=== PATIENT | male | born 1970 | race African-American/Black ===

== ENCOUNTER 2017-02-11 08:13 | Emergency (ER) | payer OTHER ==
[2017-02-11 08:16] VITALS: TEMP 98.4; BMI 34.0
[2017-02-11] MEDS ORDERED: ACETAMINOPHEN 500 MG TABLET (FP) PO ONE (08:59)
[2017-02-11] MEDS ORDERED: ACETAMINOPHEN 325 MG TABLET (FP) ONE (09:05)
--- NOTE | 2017-02-11 09:39 | PDOC ---
History of Present Illness <Mei Robles - Last Filed: 02/11/17 10:09> - General History Source: Patient Exam Limitations: No Limitations - History of Present Illness Initial Comments: 02/11/17 10:24 The patient is a 47 year old male, with a significant past medical history of hypertension, hyperlipidemia, and GERD, who presents to the emergency department complaining of a headache since approximately 07:00 today. Patient reports taking his blood pressure this morning when he woke up, which was 160/ 110 also at 7am. Shortly after, patient reports he developed a gradual onset left-sided headache localized in the left evangelical. Patient reports headache radiates from the left frontal to the left occipital lobe. He denies any associated dizziness, stiff neck, changes in vision, or ear pain. He denies any head trauma or LOC. He has had similar headaches in the past when his BP is high. Patient reports taking his Losartan and Amlodipine for his HTN this morning, which lowered his bp and improved his headache, but his headache did not resolve. Patient reports he was recently prescribed a new medication for his HLD by Dr. Patten, but he admits he has not been taking it daily, because he believes they will interact with his HTN meds. He denies any abdominal pain, nausea, vomiting, diarrhea, or constipation. He denies any chest pain, shortness of breath, diaphoresis, or palpitations. He denies any recent travel or sick contacts. Allergies: NKDA Past Surgical History: None reported Social History: Former smoker. Social ETOH use. No drug use. PCP: Dr. Patten <Elva Medina - Last Filed: 02/11/17 10:27> - General Chief Complaint: Blood Pressure Problem Stated Complaint: HEADACHE, HIGH BP Time Seen by Provider: 02/11/17 08:40 Past History - Past Medical History GI Disorders: Yes (ACID REFLUX) HTN: Yes - Psycho/Social/Smoking Cessation Hx Anxiety: No Suicidal Ideation: No Smoking History: Former smoker Have you smoked in the past 12 months: No If you are a former smoker, when did you quit?: 20 YRS Information on smoking cessation initiated: No Hx Alcohol Use: Yes (SOCIAL) Drug/Substance Use Hx: No Substance Use Type: None <Mei Robles - Last Filed: 02/11/17 10:09> <Elva Medina - Last Filed: 02/11/17 10:27> - Past Medical History Allergies/Adverse Reactions: Allergies Allergy/AdvReac Type Severity Reaction Status Date / Time No Known Allergies Allergy Verified 02/11/17 08:16 Home Medications: Ambulatory Orders Amlodipine Besylate 5 mg PO DAILY 02/11/17 Losartan Potassium [Cozaar] 100 mg PO DAILY 02/11/17 Review of Systems - Review of Systems Able to Perform ROS?: Yes Comments:: 02/11/17 10:24 GENERAL/CONSTITUTIONAL: Yes: +high blood pressure. No fever or chills. No weakness. HEAD, EYES, EARS, NOSE AND THROAT: No change in vision. No ear pain or discharge. No sore throat. CARDIOVASCULAR: No chest pain or shortness of breath. RESPIRATORY: No cough, wheezing, or hemoptysis. GASTROINTESTINAL: No nausea, vomiting, diarrhea or constipation. GENITOURINARY: No dysuria, frequency, or change in urination. MUSCULOSKELETAL: No joint or muscle swelling or pain. No neck or back pain. SKIN: No rash NEUROLOGIC: Yes: +headache. No vertigo, loss of consciousness, or change in strength/sensation. ENDOCRINE: No increased thirst. No abnormal weight change. HEMATOLOGIC/LYMPHATIC: No anemia, easy bleeding, or history of blood clots. ALLERGIC/IMMUNOLOGIC: No hives or skin allergy. <AdamDayananancy - Last Filed: 02/11/17 10:27> *Physical Exam - Vital Signs Last Vital Signs Temp Pulse Resp BP Pulse Ox 98.4 F 72 18 137/90 100 02/11/17 08:49 02/11/17 08:49 02/11/17 08:49 02/11/17 08:49 02/11/17 08:49 <Nassef,Yomna - Last Filed: 02/11/17 10:09> - Vital Signs Last Vital Signs Temp Pulse Resp BP Pulse Ox 98.4 F 86 18 132/95 100 02/11/17 08:49 02/11/17 09:48 02/11/17 09:48 02/11/17 09:48 02/11/17 09:48 - Physical Exam Comments: 02/11/17 10:25 GENERAL: Awake, alert, and fully oriented, in no acute distress. BP on my exam 130/90 HEAD: No signs of trauma EYES: PERRLA, EOMI, sclera anicteric, conjunctiva clear ENT: Auricles normal inspection, hearing grossly normal, nares patent, oropharynx clear without exudates. Moist mucosa NECK: Normal ROM, supple, no lymphadenopathy, JVD, or masses LUNGS: Breath sounds equal, clear to auscultation bilaterally. No wheezes, and no crackles HEART: Regular rate and rhythm, normal S1 and S2, no murmurs, rubs or gallops ABDOMEN: Soft, nontender, normoactive bowel sounds. No guarding, no rebound. No masses EXTREMITIES: Normal range of motion, no edema. No clubbing or cyanosis. No cords, erythema, or tenderness NEUROLOGICAL: Normal speech, cranial nerves intact, negative pronator drift, 5/ 5 strength in all 4 extremities, normal sensation to light touch in all 4 extremities, normal cerebellar exam, normal gait, normal reflexes and tone SKIN: Warm, Dry, normal turgor, no rashes or lesions noted. <Elva Medina - Last Filed: 02/11/17 10:27> ED Treatment Course - Medications Given in the ED: ED Medications Discontinued Medications Generic Name Dose Route Start Last Admin Trade Name Freq PRN Reason Stop Dose Admin Acetaminophen 1,000 mg 02/11/17 08:59 02/11/17 09:04 Tylenol - PO 02/11/17 09:00 1,000 mg ONCE ONE Administration <Mei Robles - Last Filed: 02/11/17 10:09> - Medications Given in the ED: ED Medications Discontinued Medications Generic Name Dose Route Start Last Admin Trade Name Freq PRN Reason Stop Dose Admin Acetaminophen 1,000 mg 02/11/17 08:59 02/11/17 09:04 Tylenol - PO 02/11/17 09:00 1,000 mg ONCE ONE Administration <Elva Medina - Last Filed: 02/11/17 10:27> Medical Decision Making - Medical Decision Making 02/11/17 09:04 47-year-old male with a history of hypertension and hyperlipidemia presents with a left-sided headache and elevated blood pressure. Repeat blood pressure here is down to 130/90 likely because patient took his amlodipine and losartan at home. Headache is improved however still present. On exam patient is completely neurologically intact and otherwise exam is normal. Given history of similar headaches, gradual onset and improvement of headache with reduction in blood pressure likely benign headache in association with hypertensive urgency. -tylenol -reassess 02/11/17 10:07 Headache improved. Repeat neurologic exam wnl and non focal. Pt has follow up with Dr. Queen this week. I discussed the physical exam findings, ancillary test results and final diagnoses with the patient. I answered all of the patient's questions. The patient was satisfied with the care received and felt comfortable with the discharge plan and treatment plan. The patient will call their primary care physician within 24 hours to arrange follow-up and will return to the Emergency Department with any new, persistent or worsening symptoms. <Mei Robles - Last Filed: 02/11/17 10:09> *DC/Admit/Observation/Transfer - Discharge Dispostion Admit: No - Attestations Physician Attestion: 02/11/17 10:10 I, Dr. Mei Robles MD, attest that this document has been prepared under my direction and personally reviewed by me in its entirety. I further attest, that it accurately reflects all work, treatment, procedures and medical decision -making performed by me. <Mei Robles - Last Filed: 02/11/17 10:09> - Attestations Scribe Attestion: 02/11/17 10:25 Documentation prepared by Elva Medina, acting as medical director of hospice for Mei Robles MD. <Elva Medina - Last Filed: 02/11/17 10:27> Diagnosis at time of Disposition: Headache Qualifiers: Headache type: unspecified Headache chronicity pattern: unspecified pattern Intractability: not intractable Qualified Code(s): R51 - Headache - Patient Instructions Printed Discharge Instructions: DI for High Blood Pressure Additional Instructions: Please follow-up with Dr. Queen within 1 week as planned. Return to the emergency department immediately for any new or concerning symptoms or if your symptoms get worse
[2017-02-11 09:49] VITALS: BP 132/95; PULSE 86
== END 2017-02-11 10:27 | disposition home or self-care (01) ==
LOC: JER 08:13
DX: R51 Headache (principal); I10 Essential (primary) hypertension; E78.00 Pure hypercholesterolemia, unspecified
CPT/HCPCS: 99282-25

== ENCOUNTER 2020-01-19 14:46 | Emergency (ER) | payer OTHER ==
--- NOTE | 2020-01-19 14:48 | PDOC ---
Rapid Medical Evaluation Time Seen by Provider: 01/19/20 14:47 Medical Evaluation: Allergies Allergy/AdvReac Type Severity Reaction Status Date / Time No Known Allergies Allergy Verified 02/11/17 08:16 01/19/20 14:47 I have performed a brief in-person evaluation of this patient. CC: FB sensation after choking on sausage PE: No focal findings. Lungs CTAB. Orders: CXR Patient will proceed to ED for further evaluation. Discharge Disposition - Diagnosis Globus sensation - Referrals - Patient Instructions - Post Discharge Activity
[2020-01-19 14:50] VITALS: BP 139/96; PULSE 84; TEMP 98; BMI 33.2
--- NOTE | 2020-01-19 15:30 | PDOC ---
History of Present Illness - General Chief Complaint: Choking Sensation Stated Complaint: Choking Sensation Time Seen by Provider: 01/19/20 14:47 History Source: Patient Exam Limitations: No Limitations - History of Present Illness Initial Comments: 01/19/20 15:25 50-year-old male history of hypertension, hyperlipidemia presents complaining of foreign body sensation to mid chest since 930am today after accidentally swallowing a large piece of sausage while speaking on the cell phone. Patient states he vomited immediately after he swallowed the sausage. Has been able to drink fluids and speak normally. Presents to the ED "to make sure everything is okay ". Denies shortness of breath, chest pain, nausea, diarrhea, abdominal pain or any other complaint. ROS: as above PE: GENERAL: well-appearing, NAD HEAD: NCAT EYES: Pupils equal, round and reactive to light, sclera anicteric, conjunctiva clear ENT: pharynx: no erythema, no exudate, uvula midline NECK: supple CHEST: nontender RESP: clear, no w/r/r, no stridor CARDIO: rrr, no m/g/r ABD: +BS, soft, nontender, non distended BACK: no midline spinal ttp, no CVAT EXTREMITIES: Normal range of motion, no edema NEUROLOGICAL: Normal speech, normal gait SKIN: Warm, Dry Is this a multiple visit Asthma Patient?: No Past History - Medical History Allergies/Adverse Reactions: Allergies Allergy/AdvReac Type Severity Reaction Status Date / Time No Known Allergies Allergy Verified 01/19/20 14:50 Home Medications: Ambulatory Orders Amlodipine Besylate 5 mg PO DAILY 02/11/17 Losartan Potassium [Cozaar] 100 mg PO DAILY 02/11/17 COPD: No GI Disorders: Yes (ACID REFLUX) HTN: Yes Hypercholesterolemia: Yes - Psycho-Social/Smoking History Smoking History: Never smoked Have you smoked in the past 12 months: No If you are a former smoker, when did you quit?: 20 YRS - Substance Abuse Hx (Audit-C & DAST Scrn) How often the patient has a drink containing alcohol: 2-4 times / month Score: In Men: 4 or > Positive; In Women: 3 or > Positive: 2 Screen Result (Pos requires Nsg. Audit-10AR): Negative *Physical Exam - Vital Signs Last Vital Signs Temp Pulse Resp BP Pulse Ox 98 F 84 18 139/96 98 01/19/20 14:47 01/19/20 14:47 01/19/20 14:47 01/19/20 14:47 01/19/20 14:47 Medical Decision Making - Medical Decision Making 01/19/20 15:29 50-year-old male history of hypertension, hyperlipidemia presents complaining of foreign body sensation to mid chest since 930am today after accidentally swallowing a large piece of sausage while speaking on the cell phone. Patient states he vomited immediately after he swallowed the sausage. Has been able to drink fluids and speak normally. Presents to the ED "to make sure everything is okay ". Denies shortness of breath, chest pain, nausea, diarrhea, abdominal pain or any other complaint. Patient speaking full sentences Lungs clear, no stridor Chest x-ray unremarkable on my wet read Patient tolerating liquids Stable for discharge Discharge - Discharge Information Problems reviewed: Yes Clinical Impression/Diagnosis: Globus sensation Condition: Stable Disposition: HOME - Admission No - Follow up/Referral Referrals: Madhavi Patten MD [Primary Care Provider] - - Patient Discharge Instructions Additional Instructions: Continue to drink fluids Follow-up with your doctor next week If any concerning symptoms return to ED - Post Discharge Activity
== END 2020-01-19 15:35 | disposition home or self-care (01) ==
LOC: JERFT 14:46
DX: R09.89 Other specified symptoms and signs involving the circulatory and respiratory systems (principal)
CPT/HCPCS: 71046-TC-FY; 99283-25